=== PATIENT | female | born 1995 ===

== ENCOUNTER 2019-07-18 15:44 | Emergency (ER) | payer SELFPAY ==
[2019-07-18] MEDS ORDERED: MORPHINE 4 MG/1 ML INJ IV ONE ×2 (15:55→18:44)
[2019-07-18] MEDS ORDERED: SODIUM CHLORIDE 0.9% 1000 ML 1,000 ML IV ONE ×3 (15:55→18:44)
[2019-07-18] MEDS ORDERED: ONDANSETRON 4 MG/2 ML INJ IV ONE (15:55)
--- NOTE | 2019-07-18 16:00 | Emergency Department Report ---
<SETH HOUSTON - Last Filed: 07/18/19 15:58> ED Abdominal Pain HPI - General Stated Complaint: ABDOMINAL PAIN/FEVER Time Seen by Provider: 07/18/19 15:54 Source: patient Mode of arrival: Ambulatory Limitations: No Limitations - History of Present Illness Initial Comments: Kassy is a healhty 24 yo female who presents with fever, abdominal pain, leg p ain, dark urine. Symptoms began after a 7 mile run on Wednesday. She has achy dull epigastric pain which radiates to the right flank. No hx of abdominal surgery. Temperatue 103 according to asphalt raker. Hand cramping after hyperventilating in ambulance. MD Complaint: abdominal pain -: Gradual, days(s) (2) Location: epigastric Radiation: R flank Migration to: other (Right leg) Severity: moderate Severity scale (0 -10): 8 Quality: aching, dull Consistency: intermittent Improves With: nothing Worsens With: nothing Associated Symptoms: other (Dark urine fever) - Related Data Previous Rx's Medication Instructions Recorded Last Taken Type metroNIDAZOLE [Flagyl] 500 mg PO Q12HR #14 tab 07/18/19 Unknown Rx Allergies Allergy/AdvReac Type Severity Reaction Status Date / Time No Known Allergies Allergy Verified 07/18/19 16:06 ED Review of Systems Comment: All other systems reviewed and negative Constitutional: fever, malaise Respiratory: denies: cough, shortness of breath Cardiovascular: denies: chest pain Gastrointestinal: abdominal pain Musculoskeletal: back pain ED Past Medical Hx - Past Medical History Previous Medical History?: No - Surgical History Past Surgical History?: No - Social History Smoking Status: Never Smoker - Medications Home Medications: Home Medications Medication Instructions Recorded Confirmed Last Taken Type metroNIDAZOLE [Flagyl] 500 mg PO Q12HR #14 tab 07/18/19 Unknown Rx ED Physical Exam - General General appearance: alert, in no apparent distress - Head Head exam: Present: atraumatic, normocephalic - Eye Eye exam: Present: normal appearance - ENT ENT exam: Present: mucous membranes moist - Neck Neck exam: Present: normal inspection, full ROM - Respiratory Respiratory exam: Present: normal lung sounds bilaterally. Absent: respiratory distress, wheezes, rales, rhonchi - Cardiovascular Cardiovascular Exam: Present: regular rate, normal rhythm, normal heart sounds. Absent: systolic murmur, diastolic murmur, rubs, gallop - GI/Abdominal GI/Abdominal exam: Present: soft, normal bowel sounds. Absent: distended, tenderness, guarding, rebound - Extremities Exam Extremities exam: Present: normal inspection - Neurological Exam Neurological exam: Present: alert, oriented X3 - Psychiatric Psychiatric exam: Present: normal affect, normal mood - Skin Skin exam: Present: warm, dry, intact, normal color. Absent: rash ED Disposition Clinical Impression: Colitis Disposition: -01 TO HOME OR SELFCARE Condition: Stable Instructions: Abdominal Pain (ED), Infectious Colitis (ED) Additional Instructions: Please follow-up with a primary care physician in the next few days. Return to the emergency department with any worsening of your symptoms or any acute distr ess. The antibiotic prescribed, Flagyl, has a very bad reaction if mixed with alcohol of any quantity. Do not consume alcohol of any quantity while taking this antibiotic. You can take Tylenol every 4-6 hours and ibuprofen every 6-8 hours, using the dosing on the back of the bottle, as needed for fever or discomfort. Prescriptions: metroNIDAZOLE [Flagyl] 500 mg PO Q12HR #14 tab Referrals: PRIMARY MD QUINCY [Primary Care Provider] - 2-3 Days MEDINA ABDI MD [Staff Physician] - 2-3 Days [facility] [Provider Group] - 2-3 Days [facility] [Outside] - 2-3 Days <CHU ARIAS - Last Filed: 07/18/19 22:28> ED Review of Systems ROS: Stated complaint: ABDOMINAL PAIN/FEVER Other details as noted in HPI ED Course Vital Signs 07/18/19 07/18/19 07/18/19 16:01 16:02 16:23 Temperature 100.9 F H Pulse Rate 112 H 112 H 111 H Respiratory 24 29 H 27 H Rate Blood Pressure Blood Pressure 118/64 [Right] O2 Sat by Pulse 99 100 Oximetry 07/18/19 07/18/19 07/18/19 16:30 16:31 16:46 Temperature Pulse Rate 105 H 100 H Respiratory 20 16 14 Rate Blood Pressure Blood Pressure [Right] O2 Sat by Pulse 96 100 Oximetry 07/18/19 07/18/19 07/18/19 17:01 17:15 17:31 Temperature Pulse Rate 101 H 99 H 107 H Respiratory 19 21 20 Rate Blood Pressure Blood Pressure [Right] O2 Sat by Pulse 100 100 100 Oximetry 07/18/19 07/18/19 07/18/19 18:03 18:15 18:31 Temperature Pulse Rate 121 H 140 H Respiratory 15 12 Rate Blood Pressure Blood Pressure [Right] O2 Sat by Pulse 100 100 100 Oximetry 07/18/19 07/18/19 07/18/19 18:45 19:01 19:15 Temperature Pulse Rate 123 H 121 H 124 H Respiratory 13 19 18 Rate Blood Pressure Blood Pressure [Right] O2 Sat by Pulse 97 100 98 Oximetry 07/18/19 07/18/19 07/18/19 19:18 19:30 19:45 Temperature 103.2 F H Pulse Rate 111 H 110 H 115 H Respiratory 17 19 22 Rate Blood Pressure 120/56 120/56 Blood Pressure 123/62 [Right] O2 Sat by Pulse 100 99 98 Oximetry 07/18/19 07/18/19 07/18/19 20:15 20:30 20:56 Temperature 99.5 F Pulse Rate 114 H 100 H Respiratory 22 Rate Blood Pressure 126/57 104/41 Blood Pressure [Right] O2 Sat by Pulse 97 97 Oximetry 07/18/19 07/18/19 07/18/19 21:00 21:15 21:30 Temperature Pulse Rate 97 H 96 H 100 H Respiratory 18 18 18 Rate Blood Pressure 108/43 108/43 96/44 Blood Pressure [Right] O2 Sat by Pulse 97 96 100 Oximetry 07/18/19 07/18/19 07/18/19 21:53 22:00 22:15 Temperature Pulse Rate 95 H 95 H Respiratory 18 17 19 Rate Blood Pressure 114/61 110/61 Blood Pressure [Right] O2 Sat by Pulse 99 100 Oximetry ED Medical Decision Making - Lab Data Result diagrams: 07/18/19 16:32 07/18/19 16:32 - Radiology Data Radiology results: report reviewed CT abdomen pelvis w con INDICATION: fever epigastricAbdominal Pain. TECHNIQUE: All CT scans at this location are performed using the following dose modulation technique: Automated exposure control. CONTRAST: Omnipaque 300, 100 cc IV injection. COMPARISON: None available. CT ABDOMEN: The parenchymal organs are unremarkable in appearance. Negative for abdominal mass, adenopathy or fluid collection. There is moderate thickening of the colon diffusely with mild adjacent inflammation. The small bowel is not thickened. A normal appendix is identified. CT PELVIS: Diffuse colonic thickening with adjacent inflammation. Mild pelvic free fluid. The left ovary contains a 1.9 cm physiologic cyst. IMPRESSION: 1. Pancolitis. 2. Mild pelvic free fluid. - Medical Decision Making I was asked by Dr. Houston to follow the results of the patient's CT scan of the abdomen and pelvis and assist with disposition. The CT scan came back showing pancolitis and mild pelvic free fluid. After the patient returned from the bathroom she was found to have some moderate tachycardia. She was given IV fluid, a dose of pain medication and a dose of Flagyl for the pancolitis. Patient was found to have a fever. She was given Tylenol and Toradol. Since getting these medications the patient is feeling improved, the fever has resolved and her tachycardia has greatly improved if not resolved. We will attempt outpatient treatment with antibiotics. She has been instructed to follow-up with a primary care physician and to return to the ER with any worsening of her symptoms or any acute distress. Critical care attestation.: If time is entered above; I have spent that time in minutes in the direct care of this critically ill patient, excluding procedure time. ED Disposition Is pt being admited?: No Time of Disposition: 22:01
[2019-07-18 16:50] LABS: Bacteria,Urine 1+ /HPF (Negative); Bilirubin,Urine NEG (Negative); Blood,Urine NEG (Negative); Color,Urine Yellow (Yellow); Mucus,Urine FEW /HPF; Protein,Urine <15 mg/dL mg/dL (Negative); Urobilinogen,Urine < 2.0 mg/dL (<2.0)
[2019-07-18 16:55] LABS: Hematocrit 41.5 % (30.3-42.9); Hemoglobin 13.9 gm/dl (10.1-14.3); Mean Corpuscular HGB Conc 33 % (30-34); Mean Corpuscular Volume 91 fl (79-97); Platelet Count 213 K/mm3 (140-440); Red Blood Count 4.56 M/mm3 (3.65-5.03); Red Cell Distribution Width 13.1 % (13.2-15.2)
[2019-07-18 17:19] LABS: Alanine Aminotransferase 25 units/L (7-56); Albumin 4.2 g/dL (3.9-5); BUN/Creatinine Ratio 13; Blood Urea Nitrogen 9 mg/dL (7-17); Calcium 8.9 mg/dL (8.4-10.2); Hemolysis Index 16
[2019-07-18 17:26] LABS: Bilirubin,Direct < 0.2 mg/dL (0-0.2)
--- NOTE | 2019-07-18 17:50 | XRay Report ---
CHEST 1 VIEW 5:19 PM INDICATION / CLINICAL INFORMATION: Abdominal and epigastric pain with fever. COMPARISON: None available. FINDINGS: SUPPORT DEVICES: None. HEART / MEDIASTINUM: The heart size and pulmonary vasculature are normal. LUNGS / PLEURA: No significant pulmonary or pleural abnormality. No pneumothorax. ADDITIONAL FINDINGS: There are several borderline dilated gas-filled loops of small bowel in the left upper abdomen. IMPRESSION: 1. No evidence of pneumonia. 2. Borderline dilated, gas-filled loops of small bowel in the left upper quadrant of the abdomen. Signer Name: Johnnie Cardenas MD Signed: 07/18/2019 5:46 PM Workstation Name: [id number]
--- NOTE | 2019-07-18 18:29 | Cat Scan Report ---
CT abdomen pelvis w con INDICATION: fever epigastricAbdominal Pain. TECHNIQUE: All CT scans at this location are performed using the following dose modulation technique: Automated exposure control. CONTRAST: Omnipaque 300, 100 cc IV injection. COMPARISON: None available. CT ABDOMEN: The parenchymal organs are unremarkable in appearance. Negative for abdominal mass, adeno alie or fluid collection. There is moderate thickening of the colon diffusely with mild adjacent inflammation. The small bowel is not thickened. A normal appendix is identified. CT PELVIS: Diffuse colonic thickening with adjacent inflammation. Mild pelvic free fluid. The left ovary contains a 1.9 cm physiologic cyst. IMPRESSION: 1. Pancolitis. 2. Mild pelvic free fluid. Signer Name: Brain Frias MD Signed: 07/18/2019 6:25 PM Workstation Name: [id number]
[2019-07-18] MEDS ORDERED: metroNIDAZOLE/NS 500 MG/100 ML 500 MG/100 ML BAG IV ONE (18:44)
[2019-07-18] MEDS ORDERED: KETOROLAC 30 MG/1 ML INJ IV ONE (19:09)
[2019-07-18] MEDS ORDERED: ACETAMINOPHEN 325 MG TAB PO ONE (19:09)
[2019-07-18 20:14] LABS: Eosinophils % (Manual) 0 % (0.0-4.3); Total Cells Counted 100
[2019-07-18 20:15] LABS: Anisocytosis Few; Large Platelets 1+; Platelet Estimate Consistent w Auto; Stomatocytes Few
[2019-07-18 22:23] VITALS: BP 110/61
== END 2019-07-18 22:27 | disposition home or self-care (01) ==
LOC: ED 15:44
DX: K52.89 Other specified noninfective gastroenteritis and colitis (principal); Z79.899 Other long term (current) drug therapy
CPT/HCPCS: 36415; 71045; 74177; 80048; 80076; 81001; 83690; 84703; 85007; 85025; 96361; 96365; 96375; 96376; 99285; J1885; J2270; J2405; J7030; Q9967